=== PATIENT | male | born 1995 | race Caucasian/White ===

== ENCOUNTER → 2016-12-24 | Outpatient (REF) | payer BC | LOC: M LAB REF 18:38 | PROVIDERS: ATTEND Physician Assistant | DX: J02.9 Acute pharyngitis, unspecified (principal) ==

== ENCOUNTER → 2018-05-19 | Outpatient (CLI) | payer BC ==
--- NOTE | 2018-05-19 16:41 | REP ---
Clinical: Acute chest pain . Comparison: None . Technique: PA and lateral. Findings: The mediastinum and cardiac silhouette are normal. The lung madrigal are clear and without acute consolidation, effusion, or pneumothorax. The skeletal structures are intact and normal. Impression: 1. No acute cardiopulmonary process. Electronically Signed by Mika Culver MD 05/19/2018 04:33 P
== END ==
LOC: M WUC 16:24
PROVIDERS: ATTEND Physician Assistant
DX: R07.9 Chest pain, unspecified (principal)